=== PATIENT | female | born 1955 | race Caucasian/White ===

== ENCOUNTER → 2016-12-07 | Outpatient (CLI) | payer BC ==
[~2016-12-07] MED LIST: DIOVAN HCT 160/1 TAB PO; DIOVAN HCT 3201 EACH PO; PROMETRIUM100 MG PO; SIMVASTATIN40 MG PO; ULTRAM PO; VIVELLE-DO1 PATCH.B1 TD
--- NOTE | ~2016-12-07 | US85 ---
[facility]. [facility] A Service of [facility] & [facility] RADIOLOGY TEXT RESULTS PATIENT: TAWANA JACOBSON LOCATION: SNIV : 53 UNIT #: [id number] AGE: [address]: DESI ROMO APRN SEX: F ORDER DR: [id number] [address] [id number] O MR#: [id number] Acc #: [id number] NAME: TAWANA JACOBSON : 1955 SEX: F STUDY DATE/TIME: 12/07/2016 10:56 UNIT: SNIV ROOM: STUDY DESCRIPTION: LE Veins Unilat or Ltd Stdy Attending Physician: Desi Romo Aprn Referring Physician: Desi Romo Aprn Ordering Physician: Desi Romo Aprn Primary Care Physician: Autumn Correa A.P.RMonyNMony MEDICAL IMAGING REPORT This report is preliminary unless electronic signature is present. EXAM Right lower extremity venous ultrasound HISTORY Right lower extremity edema for 2 weeks and leg pain. No injury. FINDINGS Ultrasound examination of the right lower extremity veins was performed from the groin to the calf with juárez-scale, color Doppler and spectral Doppler evaluation The veins are patent and compressible. No DVT or SVT. IMPRESSION Negative right lower extremity venous ultrasound. No DVT or SVT. Dictated by... Otilio Souza M.D. THIS IS AN ELECTRONICALLY VERIFIED REPORT Otilio Souza M.D. at 12/08/2016 2:26 PM LYLA/marilyn TD: 12/08/2016 10:33 JOB #: [id number] MEDICAL IMAGING REPORT Page 1 of 1
== END | disposition home or self-care (01) ==
LOC: SNIV 10:31
DX: R60.0 Localized edema (principal)
CPT/HCPCS: 93971